=== PATIENT | male | born 1950 | race African-American/Black ===

== ENCOUNTER 2017-07-31 09:46 | Inpatient (IN) | payer OTHER ==
[~2017-07-31] VITALS: Ht 154.9 cm; Wt 46.5 kg
--- NOTE | ~2017-07-31 | HC ---
[facility] [address] [place] [address] CONSULTATION Name: JAYCE ROMERO Room #: 419-P [facility] IN ..#: [id number] Admission: 07/31/17 Attend Phys: Kenyon Alvarez MD Discharge: Date of : 46 Report #: [id number] THIS REPORT FOR: //name// CC: Kenyon VENEGAS DATE OF SERVICE: 08/01/2017 REASON FOR CONSULTATION: End-stage renal disease. HISTORY OF PRESENT ILLNESS: The patient is a 66-year-old gentleman with diabetes mellitus, end-stage renal disease on dialysis for 7 years. He developed rather severe hypoglycemia with hypothermia. He was admitted to the hospital and this resolved with treatment. He is due for his routine dialysis today. Currently, not short-winded, good appetite; no nausea, vomiting, diarrhea or bloody stools; no other new symptoms. PAST MEDICAL HISTORY: Longstanding diabetes mellitus, but no neuropathy or retinopathy. No cardiac issues. No other surgeries. Dialyzes with the left upper arm fistula. REVIEW OF SYSTEMS: GENERAL: Feeling well. He was obviously comatose and hypoglycemic yesterday. EYES: Vision is just fine. ENT: Hearing okay, swallows okay. No mouth sores or ulcers. ENDOCRINE: Positive diabetes. RESPIRATORY: Not short-winded, no pleuritic pain. CARDIAC: No chest pain, angina or palpitations. GASTROINTESTINAL: No nausea, vomiting, diarrhea or bloody stools. GENITOURINARY: Very little urine output. NEUROLOGIC: Denies seizure, syncope or stroke, but was told he has had a stroke at some point in the past, really no deficits. PSYCHIATRIC: No depression or anxiety. FAMILY HISTORY: Strongly positive for diabetes and end-stage renal disease. A sister who had diabetes, end-stage renal disease got a transplant . Brother, diabetes, renal disease, on dialysis and mother who had diabetes and renal disease. HOME MEDICATIONS: Aspirin 81 mg daily, Protonix 40 mg daily, carvedilol 12.5 mg b.i.d., Tradjenta 5 mg daily, clonidine 0.2 mg b.i.d., Lipitor 20 mg daily, Nephro-Ira 1 daily, Flomax 0.4 mg daily. SOCIAL HISTORY: Remote tobacco. No alcohol. Extensive history taken from the electronic medical record, from the patient at the bedside. [address] [address] CONSULTATION Name: JAYCE ROMERO Room #: 419-P [facility] IN .R.#: [id number] Admission: 07/31/17 Attend Phys: Kenyon Alvarez MD Discharge: Date of : 46 Report #: [id number] PHYSICAL EXAMINATION: GENERAL: This is a reasonably well appearing, awake and alert gentleman, seen lying in bed, comfortable. SKIN: Unremarkable. SKELETAL: Left upper arm fistula noted. HEENT: Extraocular movements are full. Vision intact. No scleral icterus. Hearing intact. Mucous membranes moist. Tongue, buccal mucosa benign. NECK: Supple. CHEST: Clear to auscultation. HEART: Regular. ABDOMEN: Soft and nontender, without bruits, masses or organomegaly. EXTREMITIES: Show no edema. Pulses slightly diminished. LABORATORY DATA: Sodium 136, potassium 5.2, chloride 102, bicarbonate 24, creatinine 9.8, BUN 57. ASSESSMENT AND PLAN: 1. End-stage renal disease; hypoglycemic, this will need to be adjusted; hypothermic, now resolved. 2. Diabetes mellitus. He will get dialysis today, orders are written. By: [id number] Mookie Morales MD /nt
--- NOTE | ~2017-07-31 | EKG ---
[place] [address] [facility] [facility] [place] [address] ELECTROCARDIOGRAM REPORT Name: JAYCE ROMERO Room #: 419-P ADM IN M.R.#: [id number] Admission: 07/31/17 Attend Phys: Kenyon Alvarez MD Discharge: Date of : 46 Report #: [id number] THIS REPORT FOR: //name// [facility] ED Test Date: 2017-07-31 Test Time: 09:59:45 Pat Name: JAYCE ROMERO Department: Room: 419 Gender: M [place] Applier: PRETTY : 1950 Requested By: Deborah Clinton Order Number: [id number] MD: Job Syed Measurements Intervals [place] Rate: 78 P: 75 MA: 169 QRS: 72 QRSD: 128 T: 51 QT: 440 QTc: 502 Interpretive Statements Sinus rhythm LAE, consider biatrial enlargement Left ventricular hypertrophy Artifact in lead(s) I,II,aVR,aVL,V1,V2,V3,V4,V5,V6 and baseline wander in lead (s) V5,V6 No previous ECG available for comparison Electronically Signed On 07-31-2017 17:39:00 CDT by Job Syed [email or web address] <ELECTRONICALLY SIGNED> By: Job Syed MD 07/31/17 [id number] Job Syed MD /EPI
[2017-07-31 09:47] VITALS: BP 152/131
[2017-07-31 10:10] LABS: ABSOLUTE NEUTROPHILS 8.8 thou/uL (1.4-8.2); EOSINOPHILS 6.6 % (0.0-3.0); HEMATOCRIT 39.8 % (42.0-52.0); HEMOGLOBIN 12.9 gm/dL (14.0-18.0); LYMPHOCYTES 14.5 % (24.0-44.0); MCH 29.2 pg (26.0-34.0); MCHC 32.4 g/dL (28.0-37.0); MCV 90.1 fL (80.0-100.0); PLATELET COUNT 355 thou/uL (150-400); POLYS 71.9 % (36.0-66.0); RBC 4.42 mil/uL (4.50-6.00); RDW 18.2 % (10.5-14.5); WBC 12.2 thou/uL (4.0-11.0)
[2017-07-31 10:13] LABS: MANUAL DIFF NO
[2017-07-31 10:19] LABS: CALCIUM 8.9 mg/dL (8.5-10.1); CREATININE 7.4 mg/dL (0.7-1.3); POTASSIUM 4.6 mmol/L (3.5-5.1)
[2017-07-31 10:25] LABS: ALBUMIN 3.2 g/dL (3.4-5.0); TOTAL BILIRUBIN 0.3 mg/dL (<0.1-1.0); TOTAL PROTEIN 8.8 g/dL (6.4-8.2)
[2017-07-31] MEDS ORDERED: ASPIR 8181 MG PO (10:29)
[2017-07-31] MEDS ORDERED: PROTONIX40 M1 PO (10:29)
[2017-07-31] MEDS ORDERED: CARVEDILOL12.5 MG PO (10:29)
[2017-07-31] MEDS ORDERED: LIPITOR 20 MG T20 M1 PO (10:31)
[2017-07-31] MEDS ORDERED: CATAPRES0.2 MG PO (10:31)
[2017-07-31] MEDS ORDERED: NEPHRO-VITE TA0.8 MG PO (10:31)
[2017-07-31] MEDS ORDERED: TRAVATAN Z2.5 ML OPHTHALMIC (10:31)
[2017-07-31] MEDS ORDERED: TRADJENTA5 MG (10:31)
[2017-07-31] MEDS ORDERED: FLOMAX0.4 MG PO (10:32)
[2017-07-31 15:52] VITALS: BP 122/67
[2017-07-31 16:56] VITALS: BP 157/83
[2017-07-31 20:00] VITALS: BP 120/61; BP 141/64
[2017-08-01 04:00] VITALS: BP 152/75
[2017-08-01 06:57] LABS: HEMATOCRIT 34.7 % (42.0-52.0); HEMOGLOBIN 11.3 gm/dL (14.0-18.0); MCH 28.9 pg (26.0-34.0); MCHC 32.5 g/dL (28.0-37.0); MCV 88.9 fL (80.0-100.0); RBC 3.91 mil/uL (4.50-6.00); RDW 17.9 % (10.5-14.5); WBC 9.3 thou/uL (4.0-11.0)
[2017-08-01 07:06] LABS: CALCIUM 8.5 mg/dL (8.5-10.1); POTASSIUM 5.2 mmol/L (3.5-5.1)
[2017-08-01 07:07] LABS: CREATININE 9.8 mg/dL (0.7-1.3)
[2017-08-01 08:10] VITALS: BP 129/74
[2017-08-01 15:47] VITALS: BP 144/82
[2017-08-01 19:25] VITALS: BP 126/73
[2017-08-02 03:25] VITALS: BP 131/67
[2017-08-02 08:00] VITALS: BP 91/63
[2017-08-02 09:36] LABS: ABSOLUTE NEUTROPHILS 4.8 thou/uL (1.4-8.2); EOSINOPHILS 14.3 % (0.0-3.0); HEMOGLOBIN 12.1 gm/dL (14.0-18.0); LYMPHOCYTES 13.2 % (24.0-44.0); MCH 29.3 pg (26.0-34.0); MCHC 32.6 g/dL (28.0-37.0); MCV 89.9 fL (80.0-100.0); MONOCYTES 10.2 % (1.0-8.0); PLATELET COUNT 297 thou/uL (150-400); POLYS 61.3 % (36.0-66.0); RBC 4.12 mil/uL (4.50-6.00); WBC 7.8 thou/uL (4.0-11.0)
[2017-08-02 09:37] LABS: MANUAL DIFF NO
[2017-08-02 09:46] LABS: CALCIUM 8.6 mg/dL (8.5-10.1); POTASSIUM 4.4 mmol/L (3.5-5.1)
[2017-08-02 09:47] LABS: CREATININE 7.4 mg/dL (0.7-1.3)
[2017-08-02] MEDS ORDERED: LANTUS100 UNIT/M SUBQ (13:07)
[2017-08-02 13:36] VITALS: BP 91/63
== END 2017-08-02 15:56 | disposition home or self-care (01) | DRG 637 ==
LOC: ER 09:46 → EROBS 11:57 → 4E 11:57 → ENTRNSPT 08-02 15:34 → EDTRNSPTSTS 08-02 15:37 → 4E 08-02 15:56
PROVIDERS: Emergency Medicine; Hospitalist
PROC: 5A1D70Z Performance of Urinary Filtration, Intermittent, Less than 6 Hours Per Day (ICD-10-PCS; principal; 2017-08-01)
DX: E11.649 Type 2 diabetes mellitus with hypoglycemia without coma (principal); G93.41 Metabolic encephalopathy; T68.XXXA Hypothermia, initial encounter; N18.6 End stage renal disease; E78.5 Hyperlipidemia, unspecified; D72.829 Elevated white blood cell count, unspecified; I12.9 Hypertensive chronic kidney disease with stage 1 through stage 4 chronic kidney disease, or unspecified chronic kidney disease; E11.22 Type 2 diabetes mellitus with diabetic chronic kidney disease; Z83.3 Family history of diabetes mellitus; Z84.1 Family history of disorders of kidney and ureter; Z86.73 Personal history of transient ischemic attack (TIA), and cerebral infarction without residual deficits; Z79.4 Long term (current) use of insulin; Z87.891 Personal history of nicotine dependence; Z79.899 Other long term (current) drug therapy; Z79.82 Long term (current) use of aspirin; Z99.2 Dependence on renal dialysis
CPT/HCPCS: 10183; 32100

== ENCOUNTER 2017-11-29 12:07 | Emergency (ER) | payer OTHER ==
[~2017-11-29] VITALS: Ht 157.5 cm; Wt 63.5 kg
[~2017-11-29 12:07] MED LIST: ASPIR 8181 MG PO; CARVEDILOL12.5 MG PO; CATAPRES0.2 MG PO; FLOMAX0.4 MG PO; LANTUS100 UNIT/M SUBQ; LIPITOR 20 MG T20 M1 PO; NEPHRO-VITE TA0.8 MG PO; PROTONIX40 M1 PO; TRADJENTA5 MG; TRAVATAN Z2.5 ML OPHTHALMIC
[2017-11-29 12:45] LABS: HEMATOCRIT 30.7 % (42.0-52.0); HEMOGLOBIN 10.2 gm/dL (14.0-18.0); MCH 31.5 pg (26.0-34.0); MCHC 33.3 g/dL (28.0-37.0); MCV 94.6 fL (80.0-100.0); RBC 3.25 mil/uL (4.50-6.00); RDW 14.3 % (10.5-14.5); WBC 7.7 thou/uL (4.0-11.0)
[2017-11-29 12:53] LABS: CALCIUM 8.6 mg/dL (8.5-10.1); CREATININE 7.9 mg/dL (0.7-1.3); POTASSIUM 5.4 mmol/L (3.5-5.1)
[2017-11-29 12:57] LABS: ALBUMIN 2.9 g/dL (3.4-5.0); TOTAL BILIRUBIN 0.3 mg/dL (<0.1-1.0); TOTAL PROTEIN 7.4 g/dL (6.4-8.2)
[2017-11-29 14:23] VITALS: BP 152/85
== END 2017-11-29 16:15 | disposition home or self-care (01) ==
LOC: ER 12:07
PROVIDERS: Emergency Medicine
DX: E11.65 Type 2 diabetes mellitus with hyperglycemia (principal); E11.22 Type 2 diabetes mellitus with diabetic chronic kidney disease; I12.9 Hypertensive chronic kidney disease with stage 1 through stage 4 chronic kidney disease, or unspecified chronic kidney disease; N18.9 Chronic kidney disease, unspecified; D64.9 Anemia, unspecified; F17.210 Nicotine dependence, cigarettes, uncomplicated; Z99.2 Dependence on renal dialysis